=== PATIENT | female | born 1990 | race Caucasian/White ===

== ENCOUNTER 2024-05-21 08:16 | Emergency (ER) | payer SELFPAY ==
--- NOTE | ~2024-05-21 | XR_ITS ---
EXAMINATION: XR chest 1V portable DATE: 05/21/2024 09:41 INDICATION: PICC line movement. TECHNIQUE: A single frontal view of the chest was obtained. COMPARISON: None. FINDINGS: There is no pneumonia, pleural effusion, or pneumothorax. The heart size is normal. A right upper extremity peripherally inserted central venous catheter (PICC) is seen with tip in the right a xilla. IMPRESSION: 1. PICC tip in the right axilla near the junction of the brachial and axillary veins. Reviewed, dictated and finalized at location A. BURNER APPRENTICE
[2024-05-21 08:31] VITALS: BP 140/89; PULSE 102; RESP 16; TEMP 36.4; O2SAT 96
--- NOTE | 2024-05-21 09:26 | ED_ITS ---
HPI - General Adult General Chief complaint: Unspecified Stated complaint: PICC line partially hanging out Time Seen by Provider: 05/21/24 08:56 History of Present Illness HPI narrative: 34 YEARS OLD WHITE FEMALE DROVE HERSELF TO THE EMERGENCY ROOM COMPLAINING OF THE PICC LINE AT THE RIGHT ON THE PROBABLY PULLED OUT TOO MUCH, SUPPOSED TO BE 5 CM OUT OF THE SUN SKIN CURRENTLY 15-20 CM OUT OF THE SKIN. PICC LINE PLACED 2 WEEKS AGO AFTER REMOVING PORT-A-CATH, HISTORY OF POTS AND SKIN DISORDER REQUIRES BENADRYL 50 MG IV EVERY 4-6 HOURS NEEDED, HISTORY OF GASTROPARESIS CANNOT TAKE BENADRYL P.O. HAVE TO BE IV. PATIENT FROM [place]. Related Data Allergies Allergy/AdvReac Type Severity Reaction Status Date / Time prednisone Allergy Unknown Verified 05/21/24 08:30 prochlorperazine Allergy Unknown Verified 05/21/24 08:30 [From Compazine] Review of Systems Review of Systems: All systems reviewed & are unremarkable except as noted in HPI and below Exam Narrative: GENERAL APPEARANCE: WELL-DEVELOPED, WELL-NOURISHED SKIN: NORMAL COLOR, ITCHING CAMACHO RIGHT ARM SHOWING PICC LINE IN PLACE, 15 CM HANGING OUT,, NO SIGNS OF INFECTION, HAVE DRESSING ON IT, no redness, no fluctuation, no discharge, no warmth HEAD: NORMOCEPHALIC, NONTRAUMATIC CHEST AND RESPIRATORY: AIRWAY PATENT, NO RESPIRATORY DISTRESS, NO ACCESSORY MUSCLE USE VASCULAR: NORMAL PERIPHERAL PULSES, NORMAL CAPILLARY REFILL. NEUROLOGIC: ALERT AND ORIENTED ?3, REGIONAL LOSS PREVENTION MANAGER IS NORMAL TESTED, NO GROSS MOTOR DEFICIT Course Vital Signs Vital signs: Vital Signs Temperature 36.4 C 05/21/24 08:31 Pulse Rate 102 H 05/21/24 08:31 Respiratory Rate 16 05/21/24 08:31 Blood Pressure 140/89 05/21/24 08:31 Pulse Oximetry 96 05/21/24 08:31 Oxygen Delivery Room Air 05/21/24 08:31 Temperature 36.4 C 05/21/24 08:31 Pulse Rate 102 H 05/21/24 08:31 Respiratory Rate 16 05/21/24 08:31 Blood Pressure 140/89 05/21/24 08:31 Pulse Oximetry 96 05/21/24 08:31 Oxygen Delivery Room Air 05/21/24 08:31 Medical Decision Making [facility] Narrative Medical decision making narrative: Chest x-ray showed PICC line intravascular, Changing dressing, Benadryl 50 mg through the PICC line without any complication, Vital Signs Vital Signs: Vital Signs Temperature 36.4 C 05/21/24 08:31 Pulse Rate 102 H 05/21/24 08:31 Respiratory Rate 16 05/21/24 08:31 Blood Pressure 140/89 05/21/24 08:31 Pulse Oximetry 96 05/21/24 08:31 Oxygen Delivery Room Air 05/21/24 08:31 Temperature 36.4 C 05/21/24 08:31 Pulse Rate 102 H 05/21/24 08:31 Respiratory Rate 16 05/21/24 08:31 Blood Pressure 140/89 05/21/24 08:31 Pulse Oximetry 96 05/21/24 08:31 Oxygen Delivery Room Air 05/21/24 08:31 Critical Care Time Critical Care Time Critical Care Time: No Discharge Plan Discharge Clinical Impression: PIC line (peripherally inserted central catheter) flush Patient Disposition: Home, Self-Care Condition: Stable Instructions: How to Care for Your PICC (Peripherally Inserted Central Catheter) (ED), How to Flush Your PICC (Peripherally Inserted Central Catheter) (ED) Follow-up/Referrals: UNKNOWN,DOCTOR [Non-Staff] -
--- NOTE | 2024-05-21 10:21 | PC.NURSE ---
Patient's PICC line dressing changed using sterile technique with provider at bedside.
[2024-05-21] MEDS: diphenhydrAMINE HCl INJ 50 MG/ML VIAL IV PUSH (10:24)
== END 2024-05-21 10:33 | disposition home or self-care (01) ==
PROVIDERS: Emergency Provider Emergency Medicine
DX: K31.84 Gastroparesis (principal)
CPT/HCPCS: 71045; 96374; 99284; J1200

== ENCOUNTER 2024-07-07 16:12 | Emergency (ER) | payer OTHER, SELFPAY ==
--- NOTE | ~2024-07-07 | XR_ITS ---
CHEST RADIOGRAPH CLINICAL HISTORY: picc line placement . COMPARISON: 05/21/2024 TECHNIQUE: Single portable view of the chest. FINDINGS Interval placement of a small bore catheter from the right upper extremity with its tip projecting ov er the cavoatrial junction. Interval removal of the midline catheter seen on previous examination. The remainder of the cardiomediastinal silhouette is otherwise unremarkable. The lungs are clear. Visualized osseous structures and soft tissues are unremarkable. IMPRESSION: No focal infiltrate or effusion. Right upper extremity PICC line in good position and ready for immediate use. Reviewed, dictated and finalized at location A. M[facility] STONEC[facility]TER
[2024-07-07 16:15] VITALS: BP 117/63; PULSE 104; RESP 20; TEMP 36.3; O2SAT 100
--- OUTSIDE RECORDS SUMMARY | 2024-07-07 17:24 | XMS_ITS | Clinical Summary ---
Author Organization [facility] [address] [facility] Address [address] [place] [address] Care Team Providers Care Tung Nut Grower Name Role Phone No, Physician Primary Care Provider [phone] Allergies Active Allergy Reactions Criticality Noted Date Comments Prochlorperazine Anxiety Low 05/21/2024 Prednisone Rash Medium 05/21/2024 Medications No known medications Encounters Date Type Department Care Team Description 05/31/2024 Telephone [facility] [address] [place] [address] Krzysztof Cooper RN 05/26/2024 Telephone [facility] [address] [place] [address] Krzysztof Cooper RN 05/21/2024 1:04 PM FRAME ASSEMBLER - 05/21/2024 2:17 PM FRAME ASSEMBLER Emergency [facility] [address] [place] [address] Chinyere Perry MD At risk for complications involving vascular access device (Primary Dx); Problem with vascular access; Mast cell activation syndrome (HCC) Discharge Disposition: Discharge to home or self care from Last 3 Months Surgical History Surgery Date Site/Laterality Comments IR PICC LINE PLACEMENT > 5 YEARS 07/22/2020 N/A Social History Tobacco Use Types Packs/Day Years Used Date Smoking Tobacco: Never Assessed Personal Safety Answer Date Recorded Have you ever been in or are you currently in a harmful physical or emotional relationship or is someone making you feel afraid or unsafe? Denies 05/21/2024 Comments Unknown Sex and Gender Information Value Date Recorded Sex Assigned at Not on file Legal Sex Female 3:34 AM FRAME ASSEMBLER Gender Identity Not on file Sexual Orientation Not on file Obstetrics History Last Filed Vital Signs Vital Sign Reading Time Taken Comments Blood Pressure 134/85 05/21/2024 11:49 AM FRAME ASSEMBLER Pulse 116 05/21/2024 11:49 AM FRAME ASSEMBLER Temperature 36.7 ??C (98 ??F) 05/21/2024 11:49 AM FRAME ASSEMBLER Respiratory Rate 18 05/21/2024 11:49 AM FRAME ASSEMBLER Oxygen Saturation 98% 05/21/2024 11:49 AM FRAME ASSEMBLER Inhaled Oxygen Concentration - - Weight 72.6 kg (160 lb) 05/21/2024 11:49 AM FRAME ASSEMBLER Height 167.6 cm (5' 6 ) 05/21/2024 11:49 AM FRAME ASSEMBLER Body Mass Index 25.82 05/21/2024 11:49 AM FRAME ASSEMBLER Plan of Treatment Health Maintenance Due Date Last Done Comments Cervical Cancer Screening 1989 Depression Screening 1989 Hepatitis C Screening 1989 Pneumococcal vaccine <65 (1 of 2 - PCV) 1995 Varicella Vaccines (1 of 2 - 13+ 2-dose series) 2002 Hepatitis B Screening 2007 Regular Well Visit/Exam 18-64 2007 DTaP/Tdap/Td Vaccine (3 - Td or Tdap) 11/20/2023 11/19/2013, 10/23/2013 Covid-19 Vaccine ( season) 2024 03/07/2021, 09/16/2020, 08/19/2020 Influenza Vaccine (#1) 2024 , 06/01/2020, 04/27/2019, Additional history exists HPV Vaccines Aged Out No longer eligi ble based on patient's age to complete this topic Procedures Procedure Name Priority Date/Time Associated Diagnosis Comments BLOOD CULTURE STAT 05/21/2024 1:29 PM FRAME ASSEMBLER BLOOD CULTURE STAT 05/21/2024 1:27 PM FRAME ASSEMBLER from Last 3 Months Results * Blood culture Blood (05/21/2024 1:29 PM FRAME ASSEMBLER) Report Final Report: No growth Blood 05/21/2024 1:29 PM FRAME ASSEMBLER 05/21/2024 1:37 PM FRAME ASSEMBLER Narrative [facility] - 05/25/2024 4:00 PM FRAME ASSEMBLER Collection->Peripheral 1. ?Blood cultures are incubated for 4 days on a continuously monitored blood culture system. The first report of a negative culture is issued within 24 hours of receipt of the specimen in the laboratory. 2. ?Positive culture results are reported as soon as they are detected. 3. ?The most important factor for detection of microbes in the setting of bloodstream infection is the volume of blood submitted for culture. Failure to collect an optimal blood volume can result in false negative blood cultures. 4. ? For pediatric patients, the recommended blood volume to collect follows a weight based strategy. See the electronic test catalog for collection instructions. 5. ?For positive blood cultures, a rapid molecular test may be performed for organism identification using the huma ePlex blood culture identification panel for gram positive (BCID-GP) and gram negative (BCID-GN) organisms. This nucleic acid amplification test detects microbial DNA in positive blood culture broth. This assay has been cleared by the [place] Food and Drug Administration and its performance characteristics have been verified by the [facility]. For questions about this culture, contact the Microbiology Laboratory at [phone]. Interpretive data was last revised on 24. us Chinyere Perry MD LAB MICROBIOLOGY - GENERAL ORDERABLES Final Result [facility] Department [place] [address] * Blood culture Blood (05/21/2024 1:27 PM FRAME ASSEMBLER) Report Final Report: No growth Blood 05/21/2024 1:27 PM FRAME ASSEMBLER 05/21/2024 1:37 PM FRAME ASSEMBLER Narrative [facility] - 05/25/2024 4:00 PM FRAME ASSEMBLER Collection->Peripheral 1. ?Blood cultures are incubated for 4 days on a continuously monitored blood culture system. The first report of a negative culture is issued within 24 hours of receipt of the specimen in the laboratory. 2. ?Positive culture results are reported as soon as they are detected. 3. ?The most important factor for detection of microbes in the setting of bloodstream infection is the volume of blood submitted for culture. Failure to collect an optimal blood volume can result in false negative blood cultures. 4. ? For pediatric patients, the recommended blood volume to collect follows a weight based strategy. See the electronic test catalog for collection instructions. 5. ?For positive blood cultures, a rapid molecular test may be performed for organism identification using the huma ePlex blood culture identification panel for gram positive (BCID-GP) and gram negative (BCID-GN) organisms. This nucleic acid amplification test detects microbial DNA in positive blood culture broth. This assay has been cleared by the [place] Food and Drug Administration and its performance characteristics have been verified by the [facility]. For questions about this culture, contact the Microbiology Laboratory at [phone]. Interpretive data was last revised on 24. Chinyere Perry MD LAB MICROBIOLOGY - GENERAL ORDERABLES Final Result [facility] [place] [address] from Last 3 Months Insurance [facility] Care Teams Tung Nut Grower Relationship Specialty Start Date End Date No, Physician PCP - General 08/09/20
--- OUTSIDE RECORDS SUMMARY | 2024-07-07 17:24 | XMS_ITS | Encounter Summary ---
Author Organization [facility] Address [address] [place] [address]. [place] [address] [place] [address] Care Team Providers Care Portable Irrigation Operator Name Role Phone Katalina Holliday MD Primary Care Provider [phone] Pascale Watters APRN, AGENT PRODUCER-C Unavailable [phone] Encounter Details Date Type Department Care Team (Latest Contact Info) Description 07/06/2024 Travel Social History Tobacco Use Types Packs/Day Years Used Date Smoking Tobacco: Never Smokeless Tobacco: Never Alcohol Use Standard Drinks/Week Comments No 0 (1 standard drink = 0.6 oz pur e alcohol) AUDIT-C Answer Date Recorded Frequency of Alcohol Consumption Never 10/28/2018 Average Number of Drinks Not on file 019 Frequency of Binge Drinking Not on file 10/12 Comments No Sex and Gender Information Value Date Recorded Sex Assigned at Female 07/06/2024 2:17 PM J2EE ARCHITECT Legal Sex Female 10:32 PM J2EE ARCHITECT Gender Identity Not on file Sexual Orientation Not on file documented as of this encounter Functional Status * RETIRED Are you deaf or do you have serious difficulty hearing Answer Date of Assessment Author Status No 02/09/2020 3:39 AM CDT Activ e * RETIRED Are you blind or do you have serious difficulty seeing, even when wearing glasses? Answer Date of Assessment Author Status No 02/09/2020 3:39 AM CDT Activ e * Do you have serious difficulty walking or climbing stairs? Answer Date of Assessment Author Status Yes 02/09/2020 3:39 AM CDT Sagar Galeana, RN A ctive * Do you have difficulty dressing or bathing? Answer Date of Assessment Author Status No 02/09/2020 3:39 AM Sagar Avalos RN A ctive * Because of a physical, mental, or emotional condition, do you have difficulty doing errands alone such as visiting a doctor's office or shopping? Answer Date of Assessment Author Status No 02/09/2020 3:39 AM CDSagar Yang RN A ctive documented as of this encounter Mental Status * Because of a physical, mental, or emotional condition, do you have serious difficulty concentrating, remembering, or making decisions? Answer Entry Date Author Status No 02/09/2020 3:39 AM Sagar Avalos RN A ctive documented in this encounter Plan of Treatment Not on file documented as of this encounter Visit Diagnoses Not on filedocumented in this encounter Care Teams Portable Irrigation Operator Relationship Specialty Start Date End Date Katalina Holliday MD [address] [place] [id number] PCP - General FAMILY PRACTICE 03/15/18 Pascale Watters APRN, AGENT PRODUCER-C [address] [place] [id number] Vascular/Outside Plant Technician CARDIOVASCULAR DISEASE 10/28/18 documented as of this encounter
--- OUTSIDE RECORDS SUMMARY | 2024-07-07 17:24 | XMS_ITS | Clinical Summary ---
Author Organization [facility] Address [address] [place] [address]. [place], [place] [id number] [place] [address] Care Team Providers Care Take Away Man Name Role Phone Katalina Holliday MD Primary Care Provider Pascale Watters APRN, LATHE MACHINIST-C Unavailable [phone] Allergies Active Allergy Reactions Criticality Noted Date Comments Prednisone Rash Low 03/15/2018 Prochlorperazine Unknown,GI Upset Medium 05/14/2014 Vertigo, shortness of breath, JITTERY FEELING Medications morphine ER 15 MG 12 hr tablet Take 1 tablet by mouth 2 (two) times daily. 0 03/03/20 18 Active levothyroxine 25 MCG tablet TK 1 T PO QD 06/15/19 18 Active albuterol sulfate HFA 108 (90 Base) MCG/ACT inhaler Inhale 2 puffs into the lungs. 03/28/20 17 Active gabapentin 600 MG tablet Take 1 tablet by mouth 3 (three) times a day. 2 03/03/20 18 Active ondansetron 4 MG disintegrating tablet Take 1 tablet (4 mg total) by mouth every 8 (eight) hours as needed for Nausea. 20 tablet 07/24/19 19 Active COMPRESSION STOCKINGSIndicatio ns:Localized edema 20-30mmHG Knee high compression stockings 1 Container 1 10/29/19 19 Active butalbital-acetami nophen-caffeine 50-325-40 MG tablet Take 1 tablet by mouth every 4 (four) hours as needed for Headaches. 16 tablet 06/29/19 Active EPINEPHrine 0.3 MG/0.3ML injection Inject 0.3 mLs (0.3 mg total) into the muscle as needed for Anaphylaxis. 1 each 08/04/19 Active cetirizine 10 MG tablet Take 10 mg by mouth daily. Active loratadine 10 MG tablet Active metoprolol succinate ER 12.5 mg TABLET SR 24 HR 24 hr tablet Take by mouth 2 (two) times daily. Active famotidine 20 MG tablet Take 20 mg by mouth. Active ipratropium-albute rol 0.5-2.5 (3) MG/3ML Solution Inhale into the lungs as needed. 07/24/19 Active MAGNESIUM-OXIDE 400 (241.3 Mg) MG tablet Take 400 mg by mouth 2 (two) times daily. 01/03/20 Active topiramate 100 MG tablet Take 100 mg by mouth 2 (two) times daily. 07/17/19 Active lidocaine viscous 2 % solution Apply 5 mLs topically as needed for Pain. 100 mL 08/24/19 Active promethazine (PROMETHEGAN) [address] 1 suppository (25 mg total) rectally every 6 (six) hours as needed. 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 POTS (postural orthostatic tachycardia syndrome) 10/28/2018 Bilateral leg pain 02/13/2018 Encounters Date Type Department Care Team Description 07/06/2024 1:44 PM [facility] - 07/06/2024 4:05 PM [facility] Emergency [facility] Emergency [address] [place] [address] Zachariah Little MD Medical Problem Discharge Disposition: Home or Self Care (Routine Discharge) 07/06/2024 Travel 05/09/2024 5:15 PM [facility] - 05/09/2024 5:37 PM [facility] Emergency [facility] Emergency [address] [place] [address] Zachariah Little MD Medical Problem Discharge Disposition: Home or Self Care (Routine Discharge) 05/09/2024 Travel 05/07/2024 10:32 AM [facility] - 05/07/2024 1:13 PM [facility] Emergency [facility] Emergency [address] [place] [address] Valentin Morgan Kalie Oskar, DO Medical Problem Discharge Disposition: Home or Self Care (Routine Discharge) 05/07/2024 Travel 05/05/2024 12:41 PM [facility] - 05/05/2024 2:35 PM [facility] Emergency [facility] Emergency [address] [place] [address] Zachariah Little MD Rash Discharge Disposition: Home or Self Care (Routine Discharge) 05/05/2024 Travel from Last 3 Months Social History Tobacco Use Types Packs/Day Years [...] Sex Assigned at Female 07/06/2024 2:17 PM [facility] Legal Sex Female 10:32 PM [facility] Gender Identity Not on file Sexual Orientation Not on file Last Filed Vital Signs Vital Sign Reading Time Taken Comments Blood Pressure 149/92 07/06/2024 2:15 PM [facility] Pulse 104 07/06/2024 2:15 PM [facility] Temperature 36.5 ??C (97.7 ??F) 07/06/2024 2:15 PM CS T Respiratory Rate 18 07/06/2024 2:15 PM [facility] Oxygen Saturation 97% 07/06/2024 2:15 PM [facility] Inhaled Oxygen Concentration - - Weight 74.8 kg (165 lb) 05/09/2024 5:13 PM [facility] Height 170.2 cm (5' 7 ) 05/09/2024 5:13 PM [facility] Body Mass Index 25.84 05/09/2024 5:13 PM [facility] Plan of Treatment Health Maintenance Due Date Last Done Comments Cervical Cancer Screening Pap Smear (Age 30 to 64) Every 3 Years 1989 Annual Physical 1992 Hepatitis C 2007 Hepatitis B Vaccines (1 of 3 - 19+ 3-dose series) 2008 Cervical Cancer Screening Pap with HPV Testing (Age 30 to 64) Every 5 Years 2019 Cervical Cancer Screening with HPV 2019 DTaP, Tdap and Td Vaccines (3 - Td or Tdap) 11/20/2023 11/19/2013, 10/23/2013 COVID-19 Vaccine (3 - season) 2024 09/16/2020, 08/19/2020 Influenza Adult (#1) 2024 03/27/2022, 06/01/2020, 04/27/2019, Additional history exists Meningococcal B Vaccine Aged Out 03/14/2018 No l onger eligible based on patient's age to complete this topic HPV Vaccines Aged Out No longer eligi ble based on patient's age to complete this topic Meningococcal Vaccine Aged Out No elizabeth neal eligible based on patient's age to complete this topic Pneumococcal Vaccine: Pediatrics (0 to 5 Years) and At-Risk Patients (6 to 64 Years) Aged Out No longer eligible based on patient's age to complete this topic RSV Immunizations Under 20 Months Aged Out No longer eligible based on patient's age to complete this topic Procedures Procedure Name Priority Date/Time Associated Diagnosis Comments ECG 12-LEAD STAT 05/07/2024 11:22 AM [facility] XR CHEST PORTABLE STAT 05/07/2024 11: 14 AM [facility] BASIC METABOLIC PANEL STAT 05/07/2024 11:13 AM [facility] HCG QUANT (SERUM)-CHORIONIC GONADOTROPIN STAT 05/07/2024 11:13 AM [facility] CBC W/DIFF AUTOMATED STAT 05/07/2024 11:13 AM [facility] USV VAST TEAM PICC INSERT >5YR STAT 05/05/2024 2:23 PM [facility] from Last 3 Months Results * ECG 12 lead (05/07/2024 11:22 AM [facility]) 05/07/2024 11:2 2 AM [facility] Narrative [facility] - 05/07/2024 6:09 PM [facility] ?SJS-ED ? Test Date: ?2024-05-07 Pat Name: ? MIKO ALMANZAR ? Department: ?? 70 ? Room: ? [id number] Gender: ? Female ? Janitorial Maintenance Worker: ?? : ?1990 ? Requested By: KALIE OROURKE BEY Order Number: [id number] ? Reading MD: ?? Rogers Morrison ? Measurements Intervals ?[place] ? Rate: ? 87 ? P: ?43 WV: ? 139 ?QRS: ?16 QRSD: ? 93 ? T: ?25 QT: ? 374 ? QTc: ?451 ? Interpretive Statements [facility] Procedure Note Rogers Morrison MD - 05/07/2024 S-ED Test Date: 2024-05-07 Pat Name: MIKO ALMANZAR Department: 70 Room: [place] [address] Gender: Female Janitorial Maintenance Worker: : 1990 Requested By: KALIE MORGAN Order Number: [id number] Reading MD: Grecia Measurements Intervals [place] Rate: 87 P: 43 WV: 139 QRS: 16 QRSD: 93 T: 25 QT: 374 QTc: 451 Interpretive Statements [facility] us Kalie Morgan DO ECG ORDERABLES Final R esult [facility] * XR CHEST PORTABLE (05/07/2024 11:14 AM [facility]) Anatomical Region Laterality Modality Chest Radiographic Ely ging 05/07/2024 11:4 0 AM [facility] Impressions 05/07/2024 11:41 AM [facility] IMPRESSION: ======== 1. ??Mild evidence of bronchitis with no other acute cardiopulmonary findings within limitations of exam Referred By: ?? Interpreted By: Khalif Anglin MD, 05/07/2024 11:40 AM Narrative 05/07/2024 11:41 AM [facility] [address] [address] Examination: Chest x-ray 1 view Exam Date/Time: 05/07/2024 11:11 AM Reason For Exam: ??congestion, cough ?? Congestion, cough Comparison: Chest radiograph 10/23/2020 Technique: Single AP view of the chest was obtained. Findings: Right-sided PICC line distal tip in the SVC. ??Heart size normal. ??No large effusion. ??No pneumothorax. ??No consolidative changes. ??Pulmonary vasculature within normal limits. ??No convincing focal infiltrates. ??Subtle evidence of peribronchial cuffing centrally. ======== Procedure Note Khalif Anglin MD - 05/07/[address] [address] Examination: Chest x-ray 1 view Exam Date/Time: 05/07/2024 11:11 AM Reason For Exam: congestion, cough Congestion, cough Comparison: Chest radiograph 10/23/2020 Technique: Single AP view of the chest was obtained. Findings: Right-sided PICC line distal tip in the SVC. Heart size normal.No large effusion. No pneumothorax. No consolidative changes.Pulmonary vasculature within normal limits. No convincing focalinfiltrates. Subtle evidence of peribronchial cuffing centrally. ======== IMPRESSION: ======== 1. Mild evidence of bronchitis with no other acute cardiopulmonaryfindings within limitations of exam Referred By: Interpreted By: Khalif Anglin MD, 05/07/2024 11:40 AM Kalie Oskar Valentin Morgan DO GENERAL IMAGING Final R esult * (ABNORMAL) BASIC METABOLIC PANEL (05/07/2024 11:13 AM [facility]) SODIUM S/P/B 138 136 - 145 MMOL/L 05/07/2024 11:50 AM [facility] POTASSIUM S/P/B 3.7 3.5 - 5.1 MMOL/L 05/07/2024 11:50 AM [facility] CHLORIDE S/P/B 111 97 - 115 MMOL/L 05/07/2024 11:50 AM [facility] CO2 20.4(L) 21.0 - 32.0 MMOL/L 05/07/2024 11:50 AM [facility] GLUCOSE 104 74 - 106 MG/DL 05/07/2024 11:50 AM [facility] BUN 8 7 - 18 MG/DL 05/07/2024 11:50 AM [facility] CREATININE S/P/B 0.72 0.55 - 1.02 MG/DL 05/07/2024 11:50 AM [facility] CALCIUM S/P/B 8.8 8.5 - 10.1 MG/DL 05/07/2024 11:50 AM [facility] ANION GAP 6.6 2.0 - 10.0 MMOL/L 05/07/2024 11:50 AM [facility] OSMOLALITY (CALC) 285 MOSM/KG 024 11:50 AM [facility] Comment:REFERENCE RANGE NOT ESTABLISHED GFR ESTIMATE >90 >90 ML/MIN/1. 73 M2 05/07/2024 11:50 AM [facility] GFR NOTES GFR REFERENCE S: 05/07/2024 11:50 AM [facility] Comment: THE ESTIMATED GFR IS CALCULATED USING THE 2020 CKD-EPI EQUATION. THE FOLLOWING CATEGORIES FOR GRADING RENAL FUNCTION ARE RECOMMENDED BY THE INTERNATIONAL SOCIETY OF NEPHROLOGY (KDIGO 2012 CLINICAL PRACTICE GUIDELINE). G1,NORMAL OR HIGH: >89 ml/min/1.73 m2 G2,MILDLY DECREASED: 60-89 ml/min/1.73 m2 G3A,MILDLY TO MODERATELY DECREASED: 45-59 ml/min/1.73 m2 G3B,MODERATELY TO SEVERELY DECREASED: 30-44 ml/min/1.73 m2 G4,SEVERELY DECREASED: 15-29 ml/min/1.73 m2 G5,KIDNEY FAILURE: <15 ml/min/1.73 m2 05/07/2024 11:1 3 AM [facility] Kalie Morgan DO LABORATORY Final R esult Performing Organization Address [facility] de Phone Number [facility] [address] [place] [address], [place] [phone] * HCG QUANT SERUM - CHORIONIC GONADOTROPIN () (05/07/2024 11:13 AM [facility]) HCG QUANTITATIVE <1 MIU/ML 05/07/20 11:50 AM [facility] Comment: <5 IS NEGATIVE 5-25 IS BORDERLINE >25 IS POSITIVE ASSAY PERFORMED BY CHEMILUMINESCENCE METHODOLOGY USING [employer] [place] [employer]. PATIENT RESULTS DETERMINED BY ASSAYS USING DIFFERENT MANUFACTURERS FOR METHODS MAY NOT BE COMPARABLE. 05/07/2024 11:1 3 AM [facility] us Kalie Morgan DO LABORATORY Final R esult Performing Organization Address [facility] Co de Phone Number [facility] [address] [place] [address], [place] [phone] * (ABNORMAL) CBC W/DIFF AUTOMATED (05/07/2024 11:13 AM [facility]) [facility] WBC 9.67 4.00 - 10.80 x10'3/uL 05/07/2024 11:19 AM [facility] RBC 4.50 4.10 - 5.40 x10'6/uL 05/07/2024 11:19 AM [facility] HGB 12.9 12.0 - 16.0 G/DL 05/07/2024 11:19 AM [facility] HCT 39.3 36.0 - 47.0 % 05/07/2024 11:19 AM [facility] MCV 87.3 78.0 - 100.0 FL 05/07/2024 11:19 AM [facility] MCH 28.7 27.0 - 31.0 PG 05/07/2024 11:19 AM [facility] MCHC 32.8(L) 33.0 - 36.0 G/DL 05/07/2024 11:19 AM [facility] RDW 12.9 11.5 - 14.5 % 05/07/2024 11:19 AM [facility] PLT 263 150 - 350 x10'3/uL 05/07/2024 11:19 AM [facility] MPV 8.9 7.4 - 10.4 FL 05/07/2024 11:19 AM [facility] DIFFERENTIAL TYPE AUTOMATED DIFFERENTIAL 05/07/2024 11:19 AM [facility] SEG NEUTROPHILS 73.1 % 11:19 AM [facility] LYMPHOCYTES 17.2 % 05/07/2024 11:19 AM [facility] MONOCYTES 7.2 % 05/07/2024 11:19 AM [facility] EOSINOPHILS 1.4 % 05/07/2024 11:19 AM [facility] BASOPHILS 0.8 % 05/07/2024 11:19 AM [facility] IMMATURE GRANS % 0.3 % 05/07/20 11:19 AM [facility] ABS. NEUTROPHILS 7.06 1.60 - 8.30 x10'3/uL 05/07/2024 11:19 AM [facility] ABS. LYMPHOCYTES 1.66 0.80 - 4.70 x10'3/uL 05/07/2024 11:19 AM [facility] ABS. MONOCYTES 0.70 0.00 - 1.50 x10'3/uL 05/07/2024 11:19 AM [facility] ABS. EOSINOPHILS 0.14 0.00 - 0.40 x10'3/uL 05/07/2024 11:19 AM [facility] ABS. BASOPHILS 0.08 0.00 - 0.20 x10'3/uL 05/07/2024 11:19 AM [facility] ABS. IMMATURE GRANULOCYTES 0.03 0.00 - 0.03 x10'3/uL 05/07/2024 11:19 AM [facility] ABS. NUCLEATED RBC'S 0.00 0.00 - 0.01 x10'3/uL 05/07/2024 11:19 AM [facility] NRBC % 0.0 % 05/07/2024 11:19 AM [facility] 05/07/2024 11:1 3 AM [facility] us Kalie Morgan DO LABORATORY Final R esult [facility] [address] [place] [address], [id number] * USV VAST TEAM PICC INSERT >5YR (05/05/2024 2:23 PM [facility]) Anatomical Region Laterality Modality NA Vascular Ultraso und 05/05/2024 1:35 PM [facility] Narrative 05/05/2024 1:35 PM [facility] This report does not contain a radiologist's interpretation. Please review associated procedure and/or operative report. Procedure Note Sravanthi Pedraza MD - 05/05/2024 This report does not contain a radiologist's interpretation. Please review associated procedure and/or operative report. Zachariah Little MD VAS Final Result from Last 3 Months Insurance Advance Directives * Full Code (Latest Code Status on File) Date Activated Date Inactivated Comments 02/06/2020 7:24 PM 02/09/2020 10:43 PM Care Teams Take Away Man Relationship Specialty Start Date End Date Katalina Holliday MD [address] [place] [address] PCP - General FAMILY PRACTICE 03/15/18 Pascale Watters APRN, LATHE MACHINIST-C [address] [place] [phone] Vascular/Pilling Machine Operator CARDIOVASCULAR DISEASE 10/28/18
--- OUTSIDE RECORDS SUMMARY | 2024-07-07 17:24 | XMS_ITS | Encounter Summary ---
Author Organization [facility] Address [address] [place] [address]. 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 Gender Identity Not on file Sexual Orientation Not on file documented as of this encounter Plan of Treatment Not on file documented as of this encounter Visit Diagnoses Not on filedocumented in this encounter Additional Health Concerns Infection Onset Date Last Indicated Resolved Time COVID-19 Rule Out 10/17/2020 10/17/2020 10/17/2020 6:41 PM CDT documented as of this encounter Care Teams Demonstrator Knitting Relationship Specialty Start Date End Date Katalina Holliday MD [address] [place] [id number] PCP - General FAMILY PRACTICE 03/15/18 Pascale Watters APRN, NURSE STAFF [facility] [address] [place] [address] Vascular/Director External Communications CARDIOVASCULAR DISEASE 10/28/18 documented as of this encounter
--- OUTSIDE RECORDS SUMMARY | 2024-07-07 17:24 | XMS_ITS | Encounter Summary ---
Author Organization [facility] Address [facility] [place] [address] [place] [address] Care Team Providers Care Recreation Facilities Supervisor Name Role Phone Katalina Holliday MD Primary Care Provider Pascale Watters APRN NUCLEAR OFFICER-C Unavailable [phone] Reason for Visit * Reason Comments Medical Problem Encounter Details Date Type Department Care Team (Late st Contact Info) Description 07/06/2024 1:44 PM NECK BAND OPERATOR - 07/06/2024 4:05 PM NECK BAND OPERATOR Emergency [facility] Emergency [address] [place] [address] Zachariah Little MD [address] [place] [id number] Medical Problem Discharge Disposition: Home or Self Care (Routine Discharge) Social History Tobacco Use Types Packs/Day Years [...] Sex Assigned at Female 07/06/2024 2:17 PM NECK BAND OPERATOR Legal Sex Female 10:32 PM NECK BAND OPERATOR Gender Identity Not on file Sexual Orientation Not on file documented as of this encounter Last Filed Vital Signs Vital Sign Reading Time Taken Comments Blood Pressure 149/92 07/06/2024 2:15 PM NECK BAND OPERATOR Pulse 104 07/06/2024 2:15 PM NECK BAND OPERATOR Temperature 36.5 ??C (97.7 ??F) 07/06/2024 2:15 PM CS T Respiratory Rate 18 07/06/2024 2:15 PM NECK BAND OPERATOR Oxygen Saturation 97% 07/06/2024 2:15 PM NECK BAND OPERATOR Inhaled Oxygen Concentration - - Weight - - Height - - Body Mass Index - - documented in this encounter Functional Status * RETIRED Are [...] Status Yes 02/09/2020 3:39 AM CDT Sagar Galeana RN A ctive * Do you have difficulty dressing or bathing? Answer Date of Assessment Author Status No 02/09/2020 3:39 AM CDT Sagar Galeana, RN A ctive * Because of a physical, mental, or emotional condition, do you have difficulty doing errands alone such as visiting a doctor's office or shopping? Answer Date of Assessment Author Status No 02/09/2020 3:39 AM CDT Sagar Galeana, RN A ctive documented as of this encounter Mental Status * Because of a physical, mental, or emotional condition, do you have serious difficulty concentrating, remembering, or making decisions? Answer Entry Date Author Status No 02/09/2020 3:39 AM CDT Sagar Galeana RN A ctive documented in this encounter Discharge Instructions * Discharge Instructions* Zachariah Little MD - 07/06/2024 3:07 PM NECK BAND OPERATOR Please follow-up with your primary physician for PICC line orders. BAND OPERATOR BAND OPERATOR documented in this encounter Medications at Time of Discharge albuterol sulfate HFA 108 (90 Base) MCG/ACT inhaler Inhale 2 puffs into the lungs. 7 butalbital-acetamin ophen-caffeine 50-325-40 MG tablet Take 1 tablet by mouth every 4 (four) hours as needed for Headaches. 16 tablet 0 cetirizine 10 MG tablet Take 10 mg by mouth daily. COMPRESSION STOCKINGSIndication s:Localized edema 20-30mmHG Knee high compression stockings 1 Container 1 9 EPINEPHrine 0.3 MG/0.3ML injection Inject 0.3 mLs (0.3 mg total) into the muscle as needed for Anaphylaxis. 1 each 0 famotidine 20 MG tablet Take 20 mg by mouth. gabapentin 600 MG tablet Take 1 tablet by mouth 3 (three) times a day. 2 8 ipratropium-albuter ol 0.5-2.5 (3) MG/3ML Solution Inhale into the lungs as needed. 0 levothyroxine 25 MCG tablet TK 1 T PO QD 8 lidocaine viscous 2 % solution Apply 5 mLs topically as needed for Pain. 100 mL 1 loratadine 10 MG tablet MAGNESIUM-OXIDE 400 (241.3 Mg) MG tablet Take 400 mg by mouth 2 (two) times daily. 0 metoprolol succinate ER 12.5 mg TABLET SR 24 HR 24 hr tablet Take by mouth 2 (two) times daily. morphine ER 15 MG 12 hr tablet Take 1 tablet by mouth 2 (two) times daily. 0 8 ondansetron 4 MG disintegrating tablet Take 1 tablet (4 mg total) by mouth every 8 (eight) hours as needed for Nausea. 20 tablet 9 promethazine (PROMETHEGAN) [address] 1 suppository (25 mg total) rectally every 6 (six) hours as needed. 10 each 1 topiramate 100 MG tablet Take 100 mg by mouth 2 (two) times daily. 0 documented as of this encounter ED Notes * Zachariah Little MD - 07/06/2024 1:56 PM CST Chief Complaint Chief Complaint Patient presents with Medical Problem History of Present Illness 34-year-old female returns to the emergency department she has a history of POTS as well as inappropriate mast histamine reactions. Started having itching and swelling today gave herself epi called her doctor was told to come here for PICC line so she can give herself home Benadryl. Patient is otherwise been in her usual state of health. Medical History ALLERGIES: Review of patient's allergies indicates: Allergen Reactions Prochlorperazine Unknown and GI Upset Vertigo, shortness of breath, JITTERY FEELING Prednisone Rash MEDICATIONS: Prior to Admission medications Medication Sig Start Date End Date Taking? Authorizing Provider albuterol sulfate HFA 108 (90 Base) MCG/ACT inhaler Inhale 2 puffs into the lungs. 03/28/17 [facility] neroktxaue-bjswacvhseafi-mraygocx 50-325-40 MG tablet Take 1 tablet by mouth every 4 (four) hours as needed for Headaches. 06/29/19 Jordan Richey NP cetirizine 10 MG tablet Take 10 mg by mouth daily. [facility] COMPRESSION STOCKINGS 20-30mmHG Knee high compression stockings 10/28/18 Pascale Watters APRN, LAURA-C EPINEPHrine 0.3 MG/0.3ML injection Inject 0.3 mLs (0.3 mg total) into the muscle as needed for Anaphylaxis. 08/04/19 Topher Foster MD famotidine 20 MG tablet Take 20 mg by mouth. [facility] gabapentin 600 MG tablet Take 1 tablet by mouth 3 (three) times a day. 03/03/18 [facility] ipratropium-albuterol 0.5-2.5 (3) MG/3ML Solution Inhale into the lungs as needed. 07/24/19 [facility] levothyroxine 25 MCG tablet TK 1 T PO QD 06/15/17 [facility] lidocaine viscous 2 % solution Apply 5 mLs topically as needed for Pain. 08/23/20 Marita Hernandez MD loratadine 10 MG tablet [facility] MAGNESIUM-OXIDE 400 (241.3 Mg) MG tablet Take 400 mg by mouth 2 (two) times daily. 01/03/20 [facility] metoprolol succinate ER 12.5 mg TABLET SR 24 HR 24 hr tablet Take by mouth 2 (two) times daily. [facility] morphine ER 15 MG 12 hr tablet Take 1 tablet by mouth 2 (two) times daily. 03/03/18 [facility] ondansetron 4 MG disintegrating tablet Take 1 tablet (4 mg total) by mouth every 8 (eight) hours asneeded for Nausea. 07/24/18 Moon Conley NP promethazine (PROMETHEGAN) [address] 1 suppository (25 mg total) rectally every 6 (six) hours as needed. 08/23/20 Marita Hernandez MD topiramate 100 MG tablet Take 100 mg by mouth 2 (two) times daily. 07/17/19 [facility] PAST MEDICAL HISTORY: Past Medical History: Diagnosis Date Asthma (HHS/HCC) Kaushik-Danlos syndrome (HHS/HCC) Gastroparesis Hypothyroidism Mast cell activation syndrome (CMS/HCC HHS/HCC) POTS (postural orthostatic tachycardia syndrome) PAST SURGICAL HISTORY: Past Surgical History: Procedure Laterality Date BONE GRAFT femoral LEG / ANKLE TENDON LESION EXCISION OSTEOTOMY HIP/FEMUR x2 OSTEOTOMY TIBIA FAMILY HISTORY: No family history on file. SOCIAL HISTORY: Social History Tobacco Use Smoking status: Never Smokeless tobacco: Never Substance Use Topics Alcohol use: No Drug use: No Review of Systems Review of Systems A 10 point review of systems was obtained and negative or noncontributory to the patient's chief complaint except as noted in hpi Physical Exam Filed Vitals: 07/06/24 1415 BP: (!) 149/92 Pulse: (!) 104 Resp: 18 Temp: 97.7 ??F (36.5 ??C) TempSrc: Oral SpO2: 97% Physical Exam Constitutional and psychiatric: Patient is well-nourished well-developed alert and nontoxic in appearance. Respiratory: Normal respiratory effort auscultation reveals normal breath sounds bilaterally. Cardiovascular: Regular rate and rhythm, no abnormal sounds or murmurs, no chest wall tenderness topalpation, Gastrointestinal: Abdomen is soft and nondistended. No hepatosplenomegaly or hernias noted. Musculoskeletal: Patient has full range of motion, stability, muscle strength, and tone of upper extremities. Patient is wheelchair-bound. Skin: No acute rashes lesions or induration noted. Diagnostic Studies / Procedures ELECTROCARDIOGRAMS: No results found for this visit on 07/06/24. LABORATORY STUDIES: No results found for this visit on 07/06/24. IMAGING STUDIES No orders to display ED Course / Medical Decision Making We will place PICC line and have her primary manage her care further. [facility] ED Course as of 07/07/24 0600 Mireille Jul 06, 2024 1552 The vast service has done a chart review revealing she has been to multiple facilities for PICC lines and that at this time there is no clear indication for emergent placement. I have spoken to the patient she will follow with her primary doctor for placement. [NB] ED Course User Index [NB] Zachariah Little MD Medications - No data to display Clinical Impression Mast cell activation syndrome (CMS/HCC HHS/HCC) (Primary) Disposition: Discharge Discharge Medication List as of 07/06/2024 3:59 PM ZACHARIAH LITTLE MD 07/07/2024 Zachariah Little MD 07/07/24 0600 BAND OPERATOR * Katrina Allen RN - 07/06/2024 1:41 PM CST PATIENT ARRIVES POV WITH C/O MAST CELL ACTIVATION SYNDROME. SHE STATES SHE IS HAVING A REACTION ANDNORMALLY CAN TAKE BENADRYL BUT HER PICC LINE WAS REMOVED. SHE STATES SHE DIDN'T HAVE A WAY TO TAKW ANYTHING ELSE SO SHE GAVE HERSELF IM EPI. BAND OPERATOR documented in this encounter Plan of Treatment Not on file documented as of this encounter Visit Diagnoses Diagnosis Mast cell activation syndrome (CMS/HCC HHS/HCC)- Primary documented in this encounter Care Teams Recreation Facilities Supervisor Relationship Specialty Start Date End Date Katalina Holliday MD [address] [place] [phone] PCP - General FAMILY PRACTICE 03/15/18 Pascale Watters APRN, NUCLEAR OFFICER-C [address] [place] [id number] Vascular/Precision Thread Grinder Operator CARDIOVASCULAR DISEASE 10/28/18 documented as of this encounter
--- OUTSIDE RECORDS SUMMARY | 2024-07-07 17:24 | XMS_ITS | Referral Summary ---
Author Organization [facility] [address] Address [address] [place] [address] Care Team Providers Care Bank Accountant Name Role Phone No, Physician Primary Care Provider [phone] Encounters Date Type Department Care Team Description 05/31/2024 Telephone [facility] Emergency Department [address] [place] [address] Krzysztof Cooper RN 05/26/2024 Telephone [facility] Emergency Department [address] [place] [address] Krzysztof Cooper RN 05/21/2024 1:04 PM TOOLING SUPERVISOR - 05/21/2024 2:17 PM TOOLING SUPERVISOR Emergency [facility] Emergency Department [address] [place] [address] Chinyere Perry MD At risk for complications involving vascular access device (Primary Dx); Problem with vascular access; Mast cell activation syndrome (HCC) Discharge Disposition: Discharge to home or self care from Last 3 Months Allergies Active Allergy Reactions Criticality Noted Date Comments Prochlorperazine Anxiety Low 05/21/2024 Prednisone Rash Medium 05/21/2024 Medications No known medications Social History Tobacco Use Types Packs/Day Years [...] on file Legal Sex Female 3:34 AM TOOLING SUPERVISOR Gender Identity Not on file Sexual Orientation Not on file Last Filed Vital Signs Vital Sign Reading Time Taken Comments Blood Pressure 134/85 05/21/2024 11:49 AM TOOLING SUPERVISOR Pulse 116 05/21/2024 11:49 AM TOOLING SUPERVISOR Temperature 36.7 ??C (98 ??F) 05/21/2024 11:49 AM TOOLING SUPERVISOR Respiratory Rate 18 05/21/2024 11:49 AM TOOLING SUPERVISOR Oxygen Saturation 98% 05/21/2024 11:49 AM TOOLING SUPERVISOR Inhaled Oxygen Concentration - - Weight 72.6 kg (160 lb) 05/21/2024 11:49 AM TOOLING SUPERVISOR Height 167.6 cm (5' 6 ) 05/21/2024 11:49 AM TOOLING SUPERVISOR Body Mass Index 25.82 05/21/2024 11:49 AM TOOLING SUPERVISOR Plan of Treatment Not on file Procedures Procedure Name Priority Date/Time Associated Diagnosis Comments BLOOD CULTURE STAT 05/21/2024 1:29 PM TOOLING SUPERVISOR BLOOD CULTURE STAT 05/21/2024 1:27 PM TOOLING SUPERVISOR from Last 3 Months Results * Blood culture Blood (05/21/2024 1:29 PM TOOLING SUPERVISOR) Report Final Report: No growth Blood 05/21/2024 1:29 PM TOOLING SUPERVISOR 05/21/2024 1:37 PM TOOLING SUPERVISOR Harpreet [facility] - 05/25/2024 4:00 PM TOOLING SUPERVISOR Collection->Peripheral 1. ?Blood cultures are incubated for [...] performance characteristics have been verified by the [facility] Microbiology Laboratory. For questions about this culture, contact the Microbiology Laboratory at [phone]. Interpretive data was last revised on 24. Chinyere Perry MD LAB MICROBIOLOGY - GENERAL ORDERABLES Final Result [facility] Department [place] [address] * Blood culture Blood (05/21/2024 1:27 PM TOOLING SUPERVISOR) Report Final Report: No growth Blood 05/21/2024 1:27 PM TOOLING SUPERVISOR 05/21/2024 1:37 PM TOOLING SUPERVISOR Narrative [facility] - 05/25/2024 4:00 PM TOOLING SUPERVISOR Collection->Peripheral 1. ?Blood cultures are incubated for [...] performance characteristics have been verified by the [facility] Microbiology Laboratory. For questions about this culture, contact the Microbiology Laboratory at [phone]. Interpretive data was last revised on 24. us Chinyere Perry MD LAB MICROBIOLOGY - GENERAL ORDERABLES Final Result [facility] Department [place] [address] from Last 3 Months Insurance [facility] Care Teams Bank Accountant Relationship Specialty Start Date End Date No, Physician PCP - General 08/09/20
[2024-07-07 17:45] VITALS: BP 113/83; PULSE 112; RESP 12; O2SAT 100
--- NOTE | 2024-07-07 18:29 | PC.NURSE ---
PICC line team states they will be here in around 30 minutes.
--- NOTE | 2024-07-07 18:43 | ED_ITS ---
HPI - General Adult General Chief complaint: Unspecified Stated complaint: lost PICC, needs meds Time Seen by Provider: 07/07/24 16:59 Source: patient Mode of arrival: ambulatory Limitations: no limitations History of Present Illness HPI narrative: Patient is a 34 y/o female who presents to the ED with c/o RUE PICC line dislodgement. Patient has history of mast cell activation syndrome, POTS. She previously had a port, but states this became infected. She was then set up with a PICC line at the end of last year. She is followed with Dr. Phelps with allergy/immunology at [facility]. States she recently moved to the area here. She administers IV fluids and IV Benadryl every 4 hours at home for her syndromes. She also has history of gastroparesis and is unable to take p.o. medications. She states today, she was giving herself fluids and got up quickly to go to the bathroom, causing her PICC line to dislodge completely out of her R arm. She tried calling her specialists, but was referred to the ED for further evaluation. States she has not had any IV Benadryl since this morning. Complains of rash and itching to her chest, HAY. Denies difficulty breathing. Related Data Allergies Allergy/AdvReac Type Severity Reaction Status Date / Time prednisone Allergy Unknown Verified 05/21/24 08:30 prochlorperazine (From Allergy Unknown Verified 05/21/24 08:30 Compazine) Review of Systems Review of Systems: All systems reviewed & are unremarkable except as noted in HPI. All systems reviewed & are unremarkable except as noted in HPI and below Exam Narrative: GENERAL: Well appearing, well-nourished, non-toxic, in no acute distress. HEAD: Normocephalic, atraumatic. RESPIRATORY: Airway patent, respirations nonlabored. Clear to auscultation bilaterally, no rales, rhonchi, wheezing. CARDIOVASCULAR: Borderline tachycardic with regular rhythm without murmurs, rubs, or gallops. MUSCULOSKELETAL: Moves all extremities. No gross deformities. SKIN: Warm, dry, normal color. Very faint erythema/splotchiness of skin to neck, upper chest, facial cheeks. NEURO: A&O X3. Speech clear. Cranial nerves II-XII grossly intact. Steady gait. No ataxic movements. No focal deficits. PSYCHIATRIC: Appropriate mood and affect. Normal interaction. Course Vital Signs Vital signs: Vital Signs Temperature 97.3 F L 07/07/24 16:15 Pulse Rate 104 H 07/07/24 16:15 Respiratory Rate 20 07/07/24 16:15 Blood Pressure 117/63 07/07/24 16:15 Pulse Oximetry 100 07/07/24 16:15 Oxygen Delivery Room Air 07/07/24 16:15 Temperature 97.3 F L 07/07/24 16:15 Pulse Rate 98 07/07/24 22:45 Respiratory Rate 16 07/07/24 22:45 Blood Pressure 116/72 07/07/24 22:45 Pulse Oximetry 98 07/07/24 22:45 Oxygen Delivery Room Air 07/07/24 16:15 Medical Decision Making MDM Narrative Medical decision making narrative: Patient presented to ED with dislodged PICC line, history of POTS, mast cell activation syndrome, gastroparesis. Requiring IV fluids and IV Benadryl. Patient was mildly tachycardic upon arrival. States this is normal for her. She is having some itching to her chest and neck, which also was normal for her. There is no signs of anaphylaxis or systemic allergic reaction. No evidence of respiratory distress or airway compromise. PICC line was replaced in the ED by [facility] Vascular Access team. Confirmed by CXR. Patient given IV fluid bolus and benadryl in the ED. Vital signs stable. Will discharge home at this time. Recommended she follow-up with her specialist for further evaluation and management. Advised to continue home medications. Given return precautions. She agrees with plan. Discharged in stable condition. Medical Records Medical records reviewed: Yes I reviewed the external patient's medical records. Vital Signs Vital Signs: Vital Signs Temperature 97.3 F L 07/07/24 16:15 Pulse Rate 104 H 07/07/24 16:15 Respiratory Rate 20 07/07/24 16:15 Blood Pressure 117/63 07/07/24 16:15 Pulse Oximetry 100 07/07/24 16:15 Oxygen Delivery Room Air 07/07/24 16:15 Temperature 97.3 F L 07/07/24 16:15 Pulse Rate 98 07/07/24 22:45 Respiratory Rate 16 07/07/24 22:45 Blood Pressure 116/72 01/24/25 22:45 Pulse Oximetry 98 07/07/24 22:45 Oxygen Delivery Room Air 07/07/24 16:15 Imaging Data Attestation: I personally reviewed and interpreted this imaging study as follows: Radiologist's impression: ITS Impressions Chest X-Ray 07/07/24 20:10 IMPRESSION: No focal infiltrate or effusion. Right upper extremity PICC line in good position and ready for immediate use. Discharge Plan Discharge Clinical Impression: Displacement of peripherally inserted central catheter (PICC), Mast cell activation syndrome Patient Disposition: Home, Self-Care Condition: Stable Instructions: Antibiotic Form, How to Care for Your PICC (Peripherally Inserted Central Catheter) (ED) Additional Instructions: Follow-up with your specialists for further evaluation. Continue home medications. Patient Language: Tamazight Follow-up/Referrals: PHYSICIAN NOT ON STAFF,NONSTAFF [Primary Care Provider] - Time of Disposition: 21:34
[2024-07-07] MEDS: SODIUM CHLORIDE 0.9% IV 1,000 ML 999 ML IV CONT (20:45)
[2024-07-07] MEDS: diphenhydrAMINE HCl INJ 50 MG/ML VIAL IV PUSH (20:45)
[2024-07-07 21:34] VITALS: PULSE 97
[2024-07-07 22:45] VITALS: BP 116/72; PULSE 98; RESP 16; O2SAT 98
== END 2024-07-07 22:45 | disposition home or self-care (01) ==
PROVIDERS: Emergency Provider Physician Assistant
DX: T82.524A Displacement of infusion catheter, initial encounter (principal); D89.40 Mast cell activation, unspecified; G90.A Postural orthostatic tachycardia syndrome [POTS]; K31.84 Gastroparesis; Y84.8 Other medical procedures as the cause of abnormal reaction of the patient, or of later complication, without mention of misadventure at the time of the procedure
CPT/HCPCS: 36569; 96361; 96374; 99284; C1751; J1200; J7030